=== PATIENT | female | born 1945 | race Native Hawaiian/Other Pacific Islander ===

== ENCOUNTER 2016-08-16 10:57 | Outpatient (CLI) | payer OTHER | END 2016-08-16 11:57 | disposition home or self-care (01) | LOC: RAD 10:57 | DX: M54.12 Radiculopathy, cervical region (principal) ==

== ENCOUNTER 2016-08-30 08:27 | Outpatient (CLI) | payer OTHER | END 2016-08-30 19:11 | disposition home or self-care (01) | LOC: MRI 08:27 | DX: M54.12 Radiculopathy, cervical region (principal) ==

== ENCOUNTER 2016-09-11 22:05 | Emergency (ER) | payer OTHER ==
[~2016-09-11] VITALS: Ht 157.5 cm; Wt 78.9 kg
[2016-09-11 23:06] VITALS: BP 121/67; TEMP 98
== END 2016-09-11 23:06 | disposition home or self-care (01) ==
LOC: ED 22:05
DX: S60.221A Contusion of right hand, initial encounter (principal); W18.39XA Other fall on same level, initial encounter; Y92.098 Other place in other non-institutional residence as the place of occurrence of the external cause
CPT/HCPCS: 99282

== ENCOUNTER 2018-03-09 08:29 | Outpatient (CLI) | payer OTHER | END 2018-03-09 19:23 | disposition home or self-care (01) | LOC: RAD 08:29 | DX: Z13.820 Encounter for screening for osteoporosis (principal); Z78.0 Asymptomatic menopausal state ==

== ENCOUNTER 2018-06-15 10:03 | Outpatient (CLI) | payer OTHER | END 2018-06-15 22:49 | disposition home or self-care (01) | LOC: LABW 10:03 | PROVIDERS: Nurse Practitioner Adult Health | DX: E78.2 Mixed hyperlipidemia (principal); Z79.899 Other long term (current) drug therapy | CPT/HCPCS: 36415; 80061; 80076 ==

== ENCOUNTER 2018-12-25 08:48 | Outpatient (CLI) | payer OTHER | END 2018-12-25 20:57 | disposition home or self-care (01) | LOC: LABW 08:48 | PROVIDERS: Nurse Practitioner Adult Health | DX: E78.2 Mixed hyperlipidemia (principal); Z79.899 Other long term (current) drug therapy | CPT/HCPCS: 36415; 80061; 80076 ==

== ENCOUNTER 2019-03-01 17:53 | Emergency (ER) | payer OTHER ==
[~2019-03-01] VITALS: Ht 158.8 cm; Wt 78.0 kg
[2019-03-01 18:14] VITALS: TEMP 97.5
[2019-03-01 19:44] VITALS: BP 130/71
== END 2019-03-01 19:46 | disposition home or self-care (01) ==
LOC: ED 17:53
DX: S61.236A Puncture wound without foreign body of right little finger without damage to nail, initial encounter (principal); L03.011 Cellulitis of right finger; W26.8XXA Contact with other sharp object(s), not elsewhere classified, initial encounter; Y92.89 Other specified places as the place of occurrence of the external cause
CPT/HCPCS: 90471; 90715; 99282; 99283

== ENCOUNTER 2019-07-29 11:19 | Outpatient (CLI) | payer OTHER | END 2019-07-29 23:06 | disposition home or self-care (01) | LOC: RAD 11:19 | DX: S99.822A Other specified injuries of left foot, initial encounter (principal) ==

== ENCOUNTER 2020-05-18 16:38 | Outpatient (CLI) | payer OTHER ==
[~2020-05-18] VITALS: Ht 157.5 cm; Wt 78.5 kg
[2020-05-18 17:36] LABS: PLATELET COUNT 286 K/uL (152-353)
[2020-05-18 17:53] LABS: POTASSIUM 2.7 mmol/L (3.6-5.2)
== END 2020-05-18 21:37 | disposition home or self-care (01) ==
LOC: INF 16:38
PROVIDERS: ATTEND Family Medicine
DX: U07.1 COVID-19 (principal); I10 Essential (primary) hypertension
CPT/HCPCS: 36591; 80053; 85027; 96365

== ENCOUNTER 2020-10-02 07:43 | Outpatient (CLI) | payer OTHER ==
[2020-10-02 08:12] LABS: POTASSIUM 3.3 mmol/L (3.6-5.2)
[2020-10-02 08:35] LABS: PLATELET COUNT 292 K/uL (152-353)
== END 2020-10-02 22:15 | disposition home or self-care (01) ==
LOC: LABW 07:43
PROVIDERS: ATTEND Nurse Practitioner Adult Health
DX: Z01.810 Encounter for preprocedural cardiovascular examination (principal); E78.2 Mixed hyperlipidemia; Z79.899 Other long term (current) drug therapy; R94.39 Abnormal result of other cardiovascular function study
CPT/HCPCS: 36415; 80048; 80061; 80076; 85027

== ENCOUNTER 2020-10-09 08:34 | Outpatient (CLI) | payer OTHER ==
[2020-10-09 09:35] LABS: POTASSIUM 3.5 mmol/L (3.6-5.2)
== END 2020-10-09 22:44 | disposition home or self-care (01) ==
LOC: LABW 08:34
PROVIDERS: ATTEND Nurse Practitioner Adult Health
DX: Z79.899 Other long term (current) drug therapy (principal); E11.9 Type 2 diabetes mellitus without complications
CPT/HCPCS: 36415; 80048

== ENCOUNTER 2021-04-21 08:07 | Outpatient (CLI) | payer OTHER | END 2021-04-21 20:17 | disposition home or self-care (01) | LOC: LABW 08:07 | PROVIDERS: ATTEND Nurse Practitioner | DX: E78.49 Other hyperlipidemia (principal); Z79.899 Other long term (current) drug therapy | CPT/HCPCS: 36415; 80061; 80076 ==

== ENCOUNTER 2021-08-06 08:13 | Outpatient (CLI) | payer OTHER | END 2021-08-06 19:50 | disposition home or self-care (01) | LOC: LABW 08:13 | PROVIDERS: ATTEND Nurse Practitioner | DX: E78.49 Other hyperlipidemia (principal); Z79.899 Other long term (current) drug therapy | CPT/HCPCS: 36415; 80061; 80076 ==

== ENCOUNTER 2021-10-22 07:46 | Outpatient (CLI) | payer OTHER | END 2021-10-22 20:24 | disposition home or self-care (01) | LOC: LABW 07:46 | PROVIDERS: ATTEND Nurse Practitioner Adult Health | DX: E78.49 Other hyperlipidemia (principal); I10 Essential (primary) hypertension; I25.10 Atherosclerotic heart disease of native coronary artery without angina pectoris | CPT/HCPCS: 36415; 80061 ==

== ENCOUNTER 2021-10-25 08:25 | Outpatient (CLI) | payer OTHER | END 2021-10-25 18:58 | disposition home or self-care (01) | LOC: US 08:25 | PROVIDERS: ATTEND Nurse Practitioner Primary Care | DX: R10.11 Right upper quadrant pain (principal); R05.1 Acute cough; Z13.820 Encounter for screening for osteoporosis; Z78.0 Asymptomatic menopausal state ==

== ENCOUNTER 2021-11-08 07:59 | Outpatient (CLI) | payer OTHER | END 2021-11-08 19:46 | disposition home or self-care (01) | LOC: NM 07:59 | PROVIDERS: ATTEND Nurse Practitioner Family | DX: R10.11 Right upper quadrant pain (principal) | CPT/HCPCS: A9537 ==

== ENCOUNTER 2021-11-12 10:13 | Outpatient (CLI) | payer OTHER ==
[2021-11-12] VITALS (8 sets, daily range): BP systolic 108–125; BP diastolic 58–67; TEMP 98.2–99.1
[~2021-11-12] VITALS: Ht 157.5 cm; Wt 73.3 kg
--- NOTE | 2021-11-12 13:39 | NUR ---
1105 PT AMBULATED TO RROM 1128 FOR OP INFUSION VS OBTAINED. 1123 IV ATTEMPT X1 PT BECAME DIAPHORETIC AND NAUSEATED. COOL BATH CLOTH APPLIED TO PT FORHEAD. 1128 PT BEGAN TO DRY HEAVE, BECAME PALE AND PASSED OUT. PLACED PT IN A RECLINING POSITION IN THE RECLINER OBTAINED VS BP 125/65, HR 76, RR-14, O2 SATS 95% ON ROOM AIR. NOTIFIED DR DAVIES. DR DAVIES SAID PROCEED WITH INFUSION. 1140 22G PIV TO RAC X1 ATTEMPT FLUSHED WITH 10 ML NS SECURED WITH TEGADERM. PT REMAINS IN A RECLINED POSITION AND VS ARE STABLE.
--- NOTE | 2021-11-12 13:49 | NUR ---
IV D/C INTACT SITE CARE PROVIDED. PT REMAINS IN RECLINED POSITION WITH AT SIDE. PT STATED SHE WAS COLD. BLANKET PROVIDED
--- NOTE | 2021-11-12 15:16 | NUR ---
PT IN CHAIR IN RECLINED POSITION RESTING WITH EYES CLOSED. RESP EVEN AND NOT LABORED PT EASY TO AROUSE. VS STABLE 98.3 HR- 63 RR-16 BP111/62 SATS 96%
--- NOTE | 2021-11-12 15:40 | NUR ---
PT TOLERATED INFUSION WITH NO ADVERSE REACTIONS. PT AMBULATED OUT OF FACILITY WITH HER TO POV IN NO DISTRESS
== END 2021-11-12 21:17 | disposition home or self-care (01) ==
LOC: INF 10:13
PROVIDERS: ATTEND Family Medicine
DX: Z23 Encounter for immunization (principal); U07.1 COVID-19
CPT/HCPCS: 96374; Q0222

== ENCOUNTER 2022-01-12 07:40 | Outpatient (CLI) | payer OTHER | END 2022-01-12 18:53 | disposition home or self-care (01) | LOC: LABW 07:40 | PROVIDERS: ATTEND Nurse Practitioner Adult Health | DX: E78.2 Mixed hyperlipidemia (principal); Z79.899 Other long term (current) drug therapy | CPT/HCPCS: 80076 ==

== ENCOUNTER 2022-01-20 16:43 | Outpatient (CLI) | payer OTHER | END 2022-01-20 21:06 | disposition home or self-care (01) | LOC: RAD 16:43 | PROVIDERS: ATTEND Nurse Practitioner Primary Care | DX: M25.552 Pain in left hip (principal) ==

== ENCOUNTER 2022-07-28 11:48 | Outpatient (CLI) | payer OTHER | END 2022-07-28 19:35 | disposition home or self-care (01) | LOC: RAD 11:48 | PROVIDERS: ATTEND Nurse Practitioner Family | DX: M54.17 Radiculopathy, lumbosacral region (principal) ==

== ENCOUNTER 2022-12-21 21:30 | Emergency (ER) | payer OTHER ==
[~2022-12-21] VITALS: Ht 157.5 cm; Wt 68.9 kg
[2022-12-21 22:28] LABS: PLATELET COUNT 279 K/uL (152-353)
[2022-12-21 23:47] VITALS: BP 128/71; TEMP 97.5
== END 2022-12-21 23:47 | disposition home or self-care (01) ==
LOC: ED 21:30
PROVIDERS: Family Medicine
DX: N28.1 Cyst of kidney, acquired (principal); K44.9 Diaphragmatic hernia without obstruction or gangrene; F17.210 Nicotine dependence, cigarettes, uncomplicated
CPT/HCPCS: 80053; 81002; 85027; 96372; 99283; J1885; J2360